=== PATIENT | female | born 1965 | race Caucasian/White ===

== ENCOUNTER → 2016-08-03 | Outpatient (CLI) | payer BC, OTHER ==
--- NOTE | 2016-08-04 13:16 | MAMMOGRAPHY REPORT ---
BILATERAL DIGITAL SCREENING MAMMOGRAM TOMOSYNTHESIS WITH CAD: 08/03/2016 TECHNIQUE: Breast tomosynthesis in addition to standard 2D mammography was performed. Current study was also evaluated with a Computer Aided Detection (CAD) system. COMPARISON: Comparison is made to exams dated: 08/29/2014 mammogram, 07/23/2013 mammogram - [facility], 10/03/2007, and 07/24/2008. BREAST COMPOSITION: The tissue of both breasts is heterogeneously dense, which may obscure small ma sses. FINDINGS: No suspicious masses, calcifications, or areas of architectural distortion are noted in e ither breast. There has been no significant interval change compared to prior exams. Small benign-a ppearing circumscribed masses within the left lateral and medial breast are stable compared to multi ple prior exams. Benign-appearing left breast calcifications are stable. IMPRESSION: ACR BI-RADS CATEGORY 2: BENIGN There is no mammographic evidence of malignancy. A 1 year screening mammogram is recommended. The p atient will receive written notification of the results. Approximately 10% of breast cancers are not detected with mammography. A negative mammographic repor t should not delay biopsy if a clinically suggestive mass is present. Shira Cr M.D. /:08/03/2016 16:12:58 Python Engineer: Reba WALKER(Kitty)(Gemma), [facility] letter sent: Normal 1/2 BI-RADS Code: ACR BI-RADS Category 2: Benign
== END | disposition home or self-care (01) ==
LOC: C.MAMM 13:09
PROVIDERS: ATTEND Obstetrics & Gynecology
DX: Z12.31 Encounter for screening mammogram for malignant neoplasm of breast (principal)

== ENCOUNTER → 2017-01-27 | Outpatient (CLI) | payer OTHER | END | disposition home or self-care (01) | LOC: C.LAB1850 10:01 | PROVIDERS: ATTEND Obstetrics & Gynecology | DX: N95.0 Postmenopausal bleeding (principal) ==

== ENCOUNTER → 2017-09-14 | Outpatient (CLI) | payer OTHER ==
--- NOTE | 2017-09-14 09:58 | DIAGNOSTIC IMAGING REPORT ---
CHEST 2 VIEWS ROUTINE CLINICAL HISTORY: D17.1 Lipoma of [id number] lipoma COMPARISON STUDY: No previous studies for comparison. FINDINGS: 1.6 x 1.7 cm nodule medial aspect right base. Density is indeterminate. Lungs otherwise appear clear. Diaphragms smooth. IMPRESSION: 1. 1.6 x 1.7 cm nodule medial right base. 2. CT of the chest is suggested as follow-up. The above report was generated using voice recognition software. It may contain grammatical, syntax or spelling errors. Electronically signed by: Miguel Hendrickson M.D. 09/14/2017 9:57 AM Dictated Date/Time: 09/14/2017 9:56 AM
== END | disposition home or self-care (01) ==
LOC: C.RAD1850 09:46
PROVIDERS: ATTEND Physician Assistant
DX: D17.1 Benign lipomatous neoplasm of skin and subcutaneous tissue of trunk (principal); R91.1 Solitary pulmonary nodule

== ENCOUNTER → 2017-09-19 | Outpatient (CLI) | payer OTHER ==
--- NOTE | 2017-09-19 14:05 | DIAGNOSTIC IMAGING REPORT ---
L EXTREMITY NONVASCULAR LIMITED CLINICAL HISTORY: [facility]17.1 [facility] need to arrive at 1:30p pain. Lipoma. TECHNIQUE: Ultrasound COMPARISON STUDY: None FINDINGS: Ultrasonic evaluation of the patient's left abdominal region was performed at the site of clinically palpable nodularity. At this site there is a 2 x 2.7 cm x 0.7 cm lipoma. No evidence for collection or abscess is appreciated. This nodule is well-circumscribed. IMPRESSION: Findings consistent with a lipoma at the site of clinically palpable nodularity. The above report was generated using voice recognition software. It may contain grammatical, syntax or spelling errors. Electronically signed by: Miguel Hendrickson M.D. 09/19/2017 2:04 PM Dictated Date/Time: 09/19/2017 2:03 PM
== END | disposition home or self-care (01) ==
LOC: C.ULTR 13:40
PROVIDERS: ATTEND Physician Assistant
DX: D17.1 Benign lipomatous neoplasm of skin and subcutaneous tissue of trunk (principal)

== ENCOUNTER → 2017-09-22 | Outpatient (CLI) | payer OTHER ==
--- NOTE | 2017-09-22 08:25 | DIAGNOSTIC IMAGING REPORT ---
(CHEST) THORAX WITHOUT CT DOSE: 265.30 mGy.cm HISTORY: R93.8 Abnormal finding on chest xray [id number] TECHNIQUE: Multiaxial CT images of the chest were performed without contrast. A dose lowering technique was utilized adhering to the principles of ALARA. COMPARISON: Chest 09/14/2017. FINDINGS: Confirmation of the 1.8 x 1.3 cm lobular nodule within the base the right lower lobe. This abuts the right major fissure. There is mild emphysema. A 4 mm subpleural nodule within the right lung apex on image 47. The central airways are patent. 3 mm subpleural nodule within the left upper lobe on image 97. A 5 mm subpleural nodule within the right middle lobe on image 151. A 3 mm subpleural nodule within the right lower lobe in image 179 and image 172. No suspicious lytic or blastic osseous lesions. The visualized liver, spleen, and adrenal glands are unremarkable. No pleural effusions. No pneumothorax. Normal caliber thoracic aorta. Smaller soft tissue within the anterior mediastinum favors residual thymus. No mediastinal or hilar lymphadenopathy. IMPRESSION: 1. Confirmation of a 1.8 x 1.3 cm lobular nodule within the right lower lobe. This is considered neoplastic until proven otherwise. Follow-up PET/CT and/or thoracic surgical consultation is recommended for further evaluation. 2. A few additional scattered subcentimeter subpleural nodules within the lungs at described above. The largest measures 5 mm within the right middle lobe. Continued follow-up is recommended pending complete workup of the right lower lobe nodule. 3. These findings were called/faxed to the referring physician's office. Electronically signed by: Jacob Hauser M.D. 09/22/2017 8:24 AM Dictated Date/Time: 09/22/2017 8:15 AM
== END | disposition home or self-care (01) ==
LOC: C.CTS 07:57
PROVIDERS: ATTEND Physician Assistant
DX: R93.8 Abnormal findings on diagnostic imaging of other specified body structures (principal)

== ENCOUNTER → 2017-10-02 | Outpatient (CLI) | payer OTHER ==
--- NOTE | 2017-10-02 10:43 | DIAGNOSTIC IMAGING REPORT ---
PET/CT SKULL-THIGH CLINICAL HISTORY: PULMONARY NODULE COMPARISON STUDY: Chest CT scan dated 09/22/2017 FINDINGS: The patient was injected with 14.6 mCi of F 18 labeled FDG. Following the standard induction phase, PET/CT scanning is performed from the skull base to the upper thigh region. Activity within neck is felt to be physiologic. Within the thorax, there is no pathologic mediastinal, hilar, or axillary activity. There is no pathologic pulmonary parenchymal activity. The 18 mm right lower lobe pulmonary nodule is not FDG avid. There is no pathologic hepatic activity. There is no pathologic adrenal gland activity. There is physiologic urinary tract and bowel activity. The uterus is enlarged likely secondary to fibroids. There is no pathologic al activity within the abdomen or pelvis. There is no pathologic skeletal activity. IMPRESSION: 1. The patient's 18 mm right lower lobe pulmonary nodule is not FDG avid 2. No evidence of pathologic al activity Electronically signed by: Samy Franks M.D. 10/02/2017 10:41 AM Dictated Date/Time: 10/02/2017 10:36 AM
== END | disposition home or self-care (01) ==
LOC: C.PET 07:52
PROVIDERS: ATTEND Surgery
DX: R91.1 Solitary pulmonary nodule (principal)

== ENCOUNTER 2017-10-04 07:53 | Inpatient (IN) | payer OTHER ==
[2017-09-28 14:18] VITALS: Ht 162.6 cm; Wt 68.2 kg
[2017-09-29 12:28] LABS: BASO % 0.3 %; BASO ABS # 0.02 K/uL (0-0.2); EOS % 2.2 %; EOS ABS # 0.13 K/uL (0-0.5); HEMATOCRIT 38.8 % (37-47); HEMOGLOBIN 12.9 g/dL (12.0-16.0); IG# 0.02 K/uL (0.00-0.02); LYMPH % 35.4 %; LYMPH ABS # 2.05 K/uL (1.2-3.4); MEAN CORPUSCULAR HEMOGLOBIN 29.9 pg (25-34); MEAN CORPUSCULAR HGB CONC 33.2 g/dl (32-36); MEAN PLATELET VOLUME 10.8 fL (7.4-10.4); MONO % 5.7 %; MONO ABS # 0.33 K/uL (0.11-0.59); NEUT % 56.1 %; NEUT ABS # 3.24 K/uL (1.4-6.5); PLATELET COUNT 166 K/uL (130-400); RED CELL DISTRIBUTION WIDTH CV 12.3 % (11.5-14.5); RED CELL DISTRIBUTION WIDTH SD 40.3 fL (36.4-46.3); WHITE BLOOD COUNT 5.79 K/uL (4.8-10.8)
[2017-09-29 12:54] LABS: CALCIUM 8.8 mg/dl (8.5-10.1); CREATININE 0.79 mg/dl (0.60-1.20); POTASSIUM 4.1 mmol/L (3.5-5.1)
[2017-10-04] VITALS (10 sets, daily range): BP systolic 95–135; BP diastolic 60–77; PULSE 55–88; TEMP 36.3–37.2; O2SAT 98–100
[~2017-10-04] VITALS: Ht 162.6 cm; Wt 68.2 kg
[~2017-10-04 07:53] MED LIST: LACTATED RINGER'S 1000ML 1,000 ML IV SCH
[2017-10-04] MEDS ORDERED: FENTANYL CITRATE INJ 50 MCG/1 ML 2 ML VIAL ONE ×2 (10:26)
[2017-10-04] MEDS ORDERED: MIDAZOLAM HCL 1 MG/ML 2ML VIAL ONE (10:26)
--- NOTE | 2017-10-04 10:38 | History & Physical Bridge Note ---
H&P Re-Evaluation Bridge Note: I have examined the patient, reviewed the History & Physical and in the interval since the performance of the History & Physical I have noted the following changes of clinical significance: No changes noted
[2017-10-04] MEDS ORDERED: BUPIVACAINE LIPOSOME 1/3% 266 MG/20 ML VIAL ONE (10:58)
[2017-10-04] MEDS ORDERED: SODIUM CHLORIDE 0.9% PF 50 ML VIAL ONE ×2 (10:58→10:59)
[2017-10-04] MEDS ORDERED: BUPIVACAINE 0.5 % 5 MG/1 ML MPF 30ML VIAL ONE (10:59)
[2017-10-04] MEDS ORDERED: CEFAZOLIN SOD 1 GM VIAL ONE ×2 (12:03→12:23)
[2017-10-04] MEDS ORDERED: ONDANSETRON INJ 2 MG/ML 2 ML VIAL ONE (12:23)
[2017-10-04] MEDS ORDERED: DEXAMETHASONE SOD INJ 4 MG/ML VIAL ONE (12:23)
[2017-10-04] MEDS ORDERED: LIDOCAINE HCL 2% 2 ML VIAL (20MG/ML) ONE (12:23)
[2017-10-04] MEDS ORDERED: PROPOFOL IV EMULSION 10 MG/ML 20 ML VIAL ONE (12:23)
[2017-10-04] MEDS ORDERED: ROCURONIUM BROMIDE 10 MG/ML 5 ML VIAL ONE ×4 (12:25→12:26)
[2017-10-04] MEDS ORDERED: PHENYLEPHRINE 100MCG/ML 5ML SYR ONE (12:26)
[2017-10-04] MEDS ORDERED: ATROPINE SULFATE 0.1 MG/ML 5ML SYR IV PRN (12:30)
[2017-10-04] MEDS ORDERED: ONDANSETRON INJ 2 MG/ML 2 ML VIAL IV PRN ×2 (12:30→13:30)
[2017-10-04] MEDS ORDERED: HYDROmorphone INJ 2 MG/ML SYR/VIAL IV PRN (12:30)
[2017-10-04] MEDS ORDERED: KETOROLAC TROMETHAMINE 30 MG/ML VIAL IV. PRN (12:30)
[2017-10-04] MEDS ORDERED: NEOSTIGMINE METHYLSULFATE 5 MG/5 ML SYR ONE (13:13)
[2017-10-04] MEDS ORDERED: GLYCOPYRROLATE INJ 0.2 MG/ML VIAL ONE (13:13)
[2017-10-04] MEDS ORDERED: SURGICEL ABSORB HEMOSTAT 2IN X 14IN TOP ONE (13:23)
[2017-10-04] MEDS ORDERED: MoRPHine SULFATE 4 MG/ML 1 ML CARP\\VIAL IV PRN (13:30)
[2017-10-04] MEDS: KETOROLAC TROMETHAMINE 15 MG/ML VIAL IV. SCH ×2 (13:30→21:28)
[2017-10-04] MEDS ORDERED: METOCLOPRAMIDE HCL INJ 5 MG/ML 2 ML VIAL IV. STA (13:30)
[2017-10-04] MEDS ORDERED: METOCLOPRAMIDE HCL INJ 5 MG/ML 2 ML VIAL ONE (14:02)
--- NOTE | 2017-10-04 14:18 | DIAGNOSTIC IMAGING REPORT ---
CHEST ONE VIEW PORTABLE HISTORY: 52 years-old Female RLL wedge status post right lower lobe resection COMPARISON: Chest radiograph 09/14/2017, PET CT 10/02/2017 TECHNIQUE: Portable AP view of the chest FINDINGS: Cardiac silhouette is within normal limits. Postoperative changes from right lower lobe resection. Right-sided chest tube is noted with distal tip projected superiorly adjacent to lateral aspect of the right lung apex. Tiny right apical pneumothorax is seen, pleural separation 5 mm. Surgical suture material projects over the right lung base from prior wedge resection. Subsegmental bibasilar opacities are noted without large pleural effusion. No overt pulmonary edema. No retained foreign body. The bones appear grossly intact. IMPRESSION: 1. Postoperative changes of the right lung base with right-sided chest tube projected adjacent to the lateral right lung apex. 2. Tiny right apical pneumothorax. 3. Subsegmental bibasilar opacities suggest atelectasis. The above report was generated using voice recognition software. It may contain grammatical, syntax or spelling errors. Electronically signed by: Phoenix Eason M.D. 10/04/2017 2:17 PM Dictated Date/Time: 10/04/2017 2:13 PM
[2017-10-04] MEDS: D5W AND 1/2NSS 1,000 ML IV SCH (15:16)
[2017-10-04] MEDS: METOCLOPRAMIDE HCL INJ 5 MG/ML 2 ML VIAL IV. SCH ×2 (15:30→21:28)
[2017-10-04] MEDS: ACETAMINOPHEN IV 1,000 MG in EMPTY BAG 0 ML IV SCH (15:51)
--- NOTE | 2017-10-04 16:00 | Anesthesiology Progress Note ---
Anesthesia Post Op Note Date & Time October 04, 2017 at 16:00 Vital Signs Pain Intensity: 0.0 Vital Signs Past 12 Hours Date Time Temp Pulse Resp B/P (MAP) Pulse Ox O2 Delivery O2 Flow Rate FiO2 10/04/17 15:55 36.4 68 18 115/65 (82) 99 Nasal Cannula 2.0 10/04/17 15:30 36.4 55 16 130/77 (94) 100 Nasal Cannula 2.0 10/04/17 14:55 99 Nasal Cannula 2.0 10/04/17 14:55 36.3 55 12 135/70 (91) 99 Nasal Cannula 2.0 10/04/17 14:40 36.4 49 12 133/69 100 Nasal Cannula 2 10/04/17 14:30 49 10 125/71 100 Nasal Cannula 2 10/04/17 14:20 48 19 132/70 100 Nasal Cannula 2 10/04/17 14:10 49 14 138/79 100 Nasal Cannula 2 10/04/17 14:00 48 15 139/77 100 Oxymask 10 10/04/17 13:50 47 13 138/71 100 Oxymask 10 10/04/17 13:41 36.3 55 13 145/79 100 Oxymask 10 10/04/17 08:30 36.8 82 18 117/70 99 Room Air Notes Mental Status: alert / awake / arousable, participated in evaluation Pt Amnestic to Procedure: Yes Nausea / Vomiting: adequately controlled Pain: adequately controlled Airway Patency, RR, SpO2: stable & adequate BP & HR: stable & adequate Hydration State: stable & adequate Anesthetic Complications: no major complications apparent
--- NOTE | 2017-10-04 19:53 | OPERATIVE REPORT ---
DATE OF OPERATION: 10/04/2017 PREOPERATIVE DIAGNOSIS: Right lower lobe mass. POSTOPERATIVE DIAGNOSIS: Hamartoma right lower lobe. PROCEDURE: 1. Jordan-assisted thoracoscopic wedge resection. 2. Lymph node biopsy. SURGEON: Enrique Frye MD RIGGING ENGINEER: OCTAVIO Olivia (Mr. Marcelino was present for the entire case). ANESTHESIA: General anesthesia with endotracheal intubation using double lumen tube. COMPLICATIONS: Kiley Garcia is a 52-year-old smoker who was found to have a mass in her right lower lobe. It is quite concerning and it certainly did appear to be malignant. She underwent a workup and was felt she would tolerate a resection. On 10/04/2017, I brought the patient to the operating room and did a robot-assisted thoracoscopic wedge resection of this right lower lobe mass. We easily saw the mass and wedged it out. It was extremely hard. Grossly, it appeared to be a hamartoma and on frozen section it did indeed glove turner and former to be a hamartoma. I biopsied the 7, 8, 9 and 11, 12 lymph node stations while we were waiting. We really lost no blood. We did an Exparel block. She tolerated it well. PROCEDURE: The patient brought to operating room and placed in supine position. General anesthesia induced and endotracheal intubation was performed with a double lumen tube.. The patient was placed in the left lateral decubitus position, right chest prepped and draped in usual sterile fashion. Exparel (liposomal mepivacaine) was mixed with 30 mL of 0.5% bupivacaine 150 mL normal saline. It was injected into all of her incisions prior to making incision. I made a camera port in about the 8th interspace just about the mid axillary line and put my camera and could see that we were in the pleural cavity. Carbon dioxide was then insufflated. I then placed the posterior most 5 mm port and 8 mm port between these 2 port posteriorly. I placed an anterior port, which was an 8 mm port and the 12 mm medical records assistant port. The robot was then docked. There were no adhesions. I took down the inferior pulmonary ligament, biopsied level IX, level VIII and level VII lymph nodes as well as a level XI and really freed up the vein nicely. I could then see the mass and wedged this out with Endo-ROSSY stapler fired x3. This was delivered off in an Endobag. We had no bleeding and no air leak from this. While waiting for this, I biopsied level XI and XII in the fissure and identified the artery. I did not take any vessels and although I had isolated the fissures nicely, we could have easily have fired the Endo-ROSSY stapler. I did not when the frozen section came back as a hamartoma. We elected to stop. 266 mg of Exparel that had been mixed with bupivicaine and saline that was then injected in an intercostal block fashion from the 2nd to 11th rib. We really got into no bleeding. The robot was undocked and removed. A handheld camera was then used to direct a chest tube placed in the anterior thoracoscopy port towards the apex. Large incisions were closed with a single 0 Vicryl to close the muscle layers. 4-0 Monocryl was used in running subcuticular fashion to approximate the wound edges. The patient tolerated it well and was awakened from anesthesia without difficulty without an air leak. I attest to the content of the Intraoperative Record and any orders documented therein. Any exceptions are noted below. MTDD
[2017-10-04] MEDS: OXYCODONE HCL IR 5 MG TAB (IMMEDIATE RELEASE) PO PRN (20:07)
[2017-10-04] MEDS: DOCUSATE SODIUM 100 MG CAP PO SCH (21:28)
[2017-10-05] VITALS (8 sets, daily range): BP systolic 94–125; BP diastolic 51–72; PULSE 53–75; TEMP 36.8–37; O2SAT 95–98
[2017-10-05] MEDS: D5W AND 1/2NSS 1,000 ML IV SCH (00:06)
[2017-10-05] MEDS: ACETAMINOPHEN IV 1,000 MG in EMPTY BAG 0 ML IV SCH ×2 (00:06→08:23)
[2017-10-05] MEDS: METOCLOPRAMIDE HCL INJ 5 MG/ML 2 ML VIAL IV. SCH ×2 (05:48→13:29)
[2017-10-05] MEDS: KETOROLAC TROMETHAMINE 15 MG/ML VIAL IV. SCH ×3 (05:48→21:24)
[2017-10-05] MEDS ORDERED: CLC100 PO (06:08)
--- NOTE | 2017-10-05 06:10 | Discharge Instructions ---
Discharge Instructions Date of Service October 05, 2017. Admission Reason for Admission: Lung Nodule, R91.1 Discharge Discharge Diagnosis / Problem: Hamartoma Discharge Goals Goal(s): Learn about illness Activity Recommendations Activity Limitations: as noted below Lifting Limitations: none 1. Do not fly or drive until cleared to do so by Dr. Frye. . Instructions / Follow-Up Instructions / Follow-Up 1. You may remove dressings in 3 days and shower thereafter. No tub baths. 2. Office appointment with Dr. Frye in 1 week. Office will call with date and time of appointment. Go to hospital 1 hour before appointment to have a chest x-ray taken. Current Hospital Diet Patient's current hospital diet: Regular Diet Discharge Diet Recommended Diet: Regular Diet Procedures Procedures Performed: Robot Assisted Right Video Thoracoscopy with Lower Lobe Wedge Resection Pending Studies Studies pending at discharge: no Medical Emergencies . Who to Call and When: Medical Emergencies: If at any time you feel your situation is an emergency, please call 911 immediately. . Non-Emergent Contact Non-Emergency issues call your: Surgeon Call Non-Emergent contact if: you have a fever, your pain is not controlled, wound has increased drainage . "Provider Documentation" section prepared by Jordan Marcelino. .
--- NOTE | 2017-10-05 07:22 | DIAGNOSTIC IMAGING REPORT ---
CHEST ONE VIEW PORTABLE CLINICAL HISTORY: RLL wedge COMPARISON STUDY: 10/04/2017 FINDINGS: The cardiac and mediastinal contours remain stable. The right-sided chest tube has been pulled back slightly. No pneumothorax is visualized. There is no failure. There are no pleural effusions. There are minor right basilar atelectatic changes.[ IMPRESSION: Postoperative changes on the right. No evidence of pneumothorax. Minor right basilar atelectasis Electronically signed by: Samy Franks M.D. 10/05/2017 7:21 AM Dictated Date/Time: 10/05/2017 7:20 AM
[2017-10-05] MEDS: DOCUSATE SODIUM 100 MG CAP PO SCH ×2 (08:27→21:23)
[2017-10-05] MEDS: ENOXAPARIN 40 MG/0.4 ML SYR SQ SCH (08:29)
[2017-10-05] MEDS ORDERED: ULT/50 PO (09:04)
--- NOTE | 2017-10-05 09:23 | DIAGNOSTIC IMAGING REPORT ---
CHEST ONE VIEW PORTABLE CLINICAL HISTORY: tube removal COMPARISON STUDY: 10/05/2017 6:55 AM FINDINGS: Interval removal of right-sided chest tube. Very small residual pneumothorax versus plate like atelectasis right base. No evidence for right apical pneumothorax. Left lung remains clear. IMPRESSION: 1. Interval removal of the right-sided chest tube. 2. Platelike atelectasis right base versus a very small residual pneumothorax. The above report was generated using voice recognition software. It may contain grammatical, syntax or spelling errors. Electronically signed by: Miguel Hendrickson M.D. 10/05/2017 9:21 AM Dictated Date/Time: 10/05/2017 9:20 AM
[2017-10-05] MEDS: ACETAMINOPHEN 325 MG TAB PO SCH ×2 (13:29→19:29)
--- NOTE | 2017-10-05 18:21 | SURGERY PROGRESS NOTE ---
DATE: 10/05/2017 Ms. Garcia was seen today. We removed her chest tube. Her pain is better. However, she has very little support at home and her is ill. I am not comfortable sending her home today. We will plan on sending her home tomorrow morning if she looks good. It appears that she did have a hamartoma and has done well with her robot-assisted thoracoscopic wedge resection.
[2017-10-05] MEDS: OXYCODONE HCL IR 5 MG TAB (IMMEDIATE RELEASE) PO PRN (19:29)
[2017-10-06] MEDS: ACETAMINOPHEN 325 MG TAB PO SCH ×4 (02:08→21:09)
[2017-10-06] MEDS: OXYCODONE HCL IR 5 MG TAB (IMMEDIATE RELEASE) PO PRN (03:43)
[2017-10-06 05:50] VITALS: BP 67/28; PULSE 62
[2017-10-06 05:58] VITALS: BP 109/68; PULSE 76
[2017-10-06] MEDS: KETOROLAC TROMETHAMINE 15 MG/ML VIAL IV. SCH (06:26)
[2017-10-06 06:32] LABS: BASO % 0.1 %; BASO ABS # 0.01 K/uL (0-0.2); EOS % 1.5 %; EOS ABS # 0.14 K/uL (0-0.5); HEMATOCRIT 26.4 % (37-47); HEMOGLOBIN 8.8 g/dL (12.0-16.0); IG# 0.01 K/uL (0.00-0.02); LYMPH % 14.1 %; LYMPH ABS # 1.28 K/uL (1.2-3.4); MEAN CELL VOLUME 89.5 fL (80-100); MEAN CORPUSCULAR HEMOGLOBIN 29.8 pg (25-34); MEAN CORPUSCULAR HGB CONC 33.3 g/dl (32-36); MEAN PLATELET VOLUME 9.8 fL (7.4-10.4); MONO ABS # 0.46 K/uL (0.11-0.59); NEUT % 79.2 %; NEUT ABS # 7.21 K/uL (1.4-6.5); PLATELET COUNT 150 K/uL (130-400); RED CELL DISTRIBUTION WIDTH CV 12.7 % (11.5-14.5); RED CELL DISTRIBUTION WIDTH SD 41.9 fL (36.4-46.3); WHITE BLOOD COUNT 9.11 K/uL (4.8-10.8)
--- NOTE | 2017-10-06 07:04 | DIAGNOSTIC IMAGING REPORT ---
CHEST ONE VIEW PORTABLE CLINICAL HISTORY: Syncope COMPARISON STUDY: 10/05/2017 FINDINGS: The cardiac and mediastinal contours remain stable. Postsurgical changes are present the right lung base. There is a small right pleural effusion with right basilar atelectasis/consolidation.[ IMPRESSION: Small right pleural effusion with associated minimal right basal airspace opacities Electronically signed by: Samy Franks M.D. 10/06/2017 7:03 AM Dictated Date/Time: 10/06/2017 7:02 AM
[2017-10-06 07:10] VITALS: BP 98/63; PULSE 81; TEMP 37.1; O2SAT 95
[2017-10-06 07:12] LABS: ALBUMIN 2.9 gm/dl (3.4-5.0); CALCIUM 7.8 mg/dl (8.5-10.1); CREATININE 0.61 mg/dl (0.60-1.20); POTASSIUM 4.1 mmol/L (3.5-5.1)
[2017-10-06 07:15] LABS: TOTAL PROTEIN 5.7 gm/dl (6.4-8.2)
--- NOTE | 2017-10-06 07:59 | SURGERY PROGRESS NOTE ---
DATE: 10/06/2017 Ms. Garcia is a 52-year-old female who was found to have a mass in her right lower lobe. We were concerned about this. I set her up to resect this as she does have a history of cigarette smoking, and it appeared ominous on the CT scan. Two days ago, I performed a robot-assisted thoracoscopic wedge resection with a lymph node dissection. This was a hamartoma. All of her nodes are negative as would be expected. I kept her overnight. She was still a little bit shaky on her feet yesterday. Early this morning, she dropped her blood pressure to the 60s, her heart rate to the 60s, and had a presyncopal episode. Nurse has put her back in bed. She was trying to have a bowel movement at this time. This has not happened to her before. We checked labs on her, and her hemoglobin dropped from 12.9 to 8.8. We really did not lose any blood during this case. We did an x-ray, and she has a very small pleural effusion, which is not accounting for this blood loss. Her vital signs have been stable to this point. She made 4000 mL of urine yesterday without diuretics. Her lungs sound clear on auscultation. At this point, we are going to keep her here, ambulate her in the hallway, and I am going to check labs on her this afternoon, and I am going to repeat her CBC.
[2017-10-06] MEDS: DOCUSATE SODIUM 100 MG CAP PO SCH ×2 (10:21→21:08)
[2017-10-06] MEDS: ENOXAPARIN 40 MG/0.4 ML SYR SQ SCH (10:23)
[2017-10-06 12:53] LABS: BASO % 0.1 %; BASO ABS # 0.01 K/uL (0-0.2); EOS % 0.8 %; EOS ABS # 0.07 K/uL (0-0.5); HEMATOCRIT 25.4 % (37-47); HEMOGLOBIN 8.7 g/dL (12.0-16.0); IG# 0.02 K/uL (0.00-0.02); LYMPH % 13.4 %; LYMPH ABS # 1.22 K/uL (1.2-3.4); MEAN CELL VOLUME 88.8 fL (80-100); MEAN CORPUSCULAR HEMOGLOBIN 30.4 pg (25-34); MEAN PLATELET VOLUME 9.9 fL (7.4-10.4); MONO ABS # 0.27 K/uL (0.11-0.59); NEUT % 82.5 %; NEUT ABS # 7.53 K/uL (1.4-6.5); PLATELET COUNT 162 K/uL (130-400); RED CELL DISTRIBUTION WIDTH CV 12.7 % (11.5-14.5); WHITE BLOOD COUNT 9.12 K/uL (4.8-10.8)
[2017-10-06 12:59] LABS: MEAN CORPUSCULAR HGB CONC 34.3 g/dl (32-36)
[2017-10-06] MEDS ORDERED: SOD PHOSPHATE/SOD BIPHOSPHATE ENEMA 132 ML BTL PR PRN (13:45)
[2017-10-06] MEDS ORDERED: BISACODYL 10 MG SUPP PR PRN (13:45)
--- NOTE | 2017-10-06 13:53 | SURGERY PROGRESS NOTE ---
DATE: 10/06/2017 Ms. Garcia's final pathology came back. Her nodes were all negative. She did indeed have a hamartoma. Chest tube has been out. Hemoglobin has remained stable at 8.7, however, she has been lightheaded. I am a bit uncomfortable, we will keep her 1 more night and check a hemoglobin on her in the morning. If she remains stable, we will see about discharging at that time.
[2017-10-06 15:00] VITALS: BP 112/71; PULSE 85; TEMP 36.3; O2SAT 100
[2017-10-06 22:55] VITALS: BP 104/71; PULSE 91; TEMP 37.1; O2SAT 94
[2017-10-07] MEDS: ACETAMINOPHEN 325 MG TAB PO SCH ×2 (02:03→09:39)
[2017-10-07 07:00] VITALS: BP 95/64; PULSE 80; TEMP 37.1; O2SAT 99
--- NOTE | 2017-10-07 07:53 | DIAGNOSTIC IMAGING REPORT ---
CHEST ONE VIEW PORTABLE HISTORY: 52 years-old Female lung resection acute cough COMPARISON: Chest radiograph 10/06/2017 TECHNIQUE: Portable AP view of the chest FINDINGS: Cardiomediastinal and hilar silhouettes are within normal limits. No pneumothorax. Left lung is clear. Surgical suture material projects over the right lung base. Trace right pleural effusion with subsegmental right basilar opacities persist. The bones appear grossly intact. IMPRESSION: Stable exam with postsurgical changes of the right lung base, trace right pleural effusion with subsegmental right basilar opacities. The above report was generated using voice recognition software. It may contain grammatical, syntax or spelling errors. Electronically signed by: Phoenix Eason M.D. 10/07/2017 7:52 AM Dictated Date/Time: 10/07/2017 7:51 AM
[2017-10-07] MEDS ORDERED: POLYETHYLENE (MIRALAX) 17 GM PACK PO SCH (09:00)
[2017-10-07] MEDS: DOCUSATE SODIUM 100 MG CAP PO SCH (09:39)
[2017-10-07] MEDS: ENOXAPARIN 40 MG/0.4 ML SYR SQ SCH (09:40)
[2017-10-07 10:21] VITALS: BP 95/64; PULSE 80; TEMP 37.1; O2SAT 99
--- NOTE | 2017-10-07 14:35 | DISCHARGE SUMMARY ---
DISCHARGE DIAGNOSES: 1. Hamartoma, right lower lobe. 2. Anemia. HOSPITAL COURSE: Kiley Garcia is a 52-year-old female with history of cigarette smoking, who was found to have a mass in her right lower lobe. This was ominous in appearance. A PET scan did not show any evidence of spread; however, I felt that a wedge resection of this with a possible lobectomy be offered to her. We discussed the pros and cons of a navigational bronchoscopy and a needle biopsy. I explained to her that even if the needle biopsy does not show cancer, I would still be uncomfortable watching this mass. On 10/04/2017, the patient underwent an uncomplicated robot-assisted thoracoscopic resection of this mass. We also did a lymph node biopsy, but awaiting for frozen section. Frozen section showed this to be a hamartoma. We did a block and stopped there. She did quite well; however, the following day, we removed her chest tube, however, she was still a bit shaky on her feet. Her was also ill at home. I was not comfortable sending her home and she was extremely apprehensively better. The following morning, her hemoglobin had fallen from 12.9 to 8.8. We repeated this and it was 8.7. Hemodynamically, she had been stable except for a vagal episode she had. I watched her one more day and she had a quiet night. Her x-ray looked good on the day of discharge. We are going to send her home today and I will see her back and recheck her hemoglobin and an x-ray later this week.
--- NOTE | 2017-10-10 11:05 | EDITING REQUIRED CODING QUERY ---
ANEMIA To promote full compliance with coding requirements relating to patient care, physician participation is requested in all cases of manager environmental services uncertainty. Please assist us with the question(s) below: Coding Question(s): The record reflects the following clinical findings: If these findings are indicative of anemia, please specify the known or suspected type by placing an "X" within the parenthesis (x). If other, please document type. Examples are: ( ) Acute blood loss anemia ( ) Acute Postoperative blood loss anemia ( ) Acute postoperative anemia due to dilutional fluids ( ) Chronic blood loss anemia ( ) Anemia of chronic disease ( ) Aplastic anemia ( ) Anemia due to renal disease ( ) Anemia in neoplastic disease ( ) Iron deficient anemia ( ) Anemia, unspecified or other ( ) Other: (please specify) (X ) Unable to determine Thank you Agatha Harvey
[2017-10-12] MEDS ORDERED: CLBCRM30 EXT (10:57)
[2017-10-12] MEDS ORDERED: ACET-1256 PO (10:57)
== END 2017-10-07 13:43 | disposition home or self-care (01) | DRG 830 ==
LOC: C.ACU 07:53 → C.MSW 10:30 → ENRESERV 14:38
PROVIDERS: ADMIT Surgery; ATTEND Surgery
PROC: 8E0W4CZ Robotic Assisted Procedure of Trunk Region, Percutaneous Endoscopic Approach (ICD-10-PCS; principal; 2017-10-04 10:00)
PROC: 0BBF4ZX Excision of Right Lower Lung Lobe, Percutaneous Endoscopic Approach, Diagnostic (ICD-10-PCS; principal; 2017-10-04 10:00)
PROC: 0W9930Z Drainage of Right Pleural Cavity with Drainage Device, Percutaneous Approach (ICD-10-PCS; principal; 2017-10-04 10:00)
PROC: 07B74ZX Excision of Thorax Lymphatic, Percutaneous Endoscopic Approach, Diagnostic (ICD-10-PCS; principal; 2017-10-04 10:00)
DX: Q85.9 Phakomatosis, unspecified (principal); D64.9 Anemia, unspecified; F17.210 Nicotine dependence, cigarettes, uncomplicated; L71.9 Rosacea, unspecified; Z79.899 Other long term (current) drug therapy; Z83.49 Family history of other endocrine, nutritional and metabolic diseases

== ENCOUNTER → 2017-10-10 | Outpatient (CLI) | payer OTHER ==
[~2017-10-10] MED LIST changes: +ACET-1256 PO; +CLBCRM30 EXT; +CLC100 PO; +DOCU-94 PO; +FERR1TAB23 PO; -LACTATED RINGER'S 1000ML 1,000 ML IV SCH; +ULT/50 PO
== END | disposition home or self-care (01) ==
LOC: C.PAPS 14:14
PROVIDERS: ATTEND Obstetrics & Gynecology
DX: Z12.4 Encounter for screening for malignant neoplasm of cervix (principal)

== ENCOUNTER → 2017-10-10 | Outpatient (CLI) | payer OTHER ==
[~2017-10-10] MED LIST changes: -ACET-1256 PO; -CLBCRM30 EXT; -DOCU-94 PO; -FERR1TAB23 PO
--- NOTE | 2017-10-10 12:35 | DIAGNOSTIC IMAGING REPORT ---
CHEST 2 VIEWS ROUTINE CLINICAL HISTORY: R91.1 Lung [id number] COMPARISON STUDY: 10/07/2017 FINDINGS: The heart is normal in size. There is no failure. There is no focal pulmonary consolidation. There is a small right pleural effusion.[ IMPRESSION: Small right pleural effusion. Electronically signed by: Samy Franks M.D. 10/10/2017 12:33 PM Dictated Date/Time: 10/10/2017 12:32 PM
[2017-10-10 13:28] LABS: BASO % 0.3 %; BASO ABS # 0.02 K/uL (0-0.2); EOS % 5.1 %; HEMATOCRIT 23.1 % (37-47); HEMOGLOBIN 7.5 g/dL (12.0-16.0); IG# 0.01 K/uL (0.00-0.02); LYMPH % 24.1 %; LYMPH ABS # 1.91 K/uL (1.2-3.4); MEAN CELL VOLUME 93.1 fL (80-100); MEAN CORPUSCULAR HEMOGLOBIN 30.2 pg (25-34); MEAN CORPUSCULAR HGB CONC 32.5 g/dl (32-36); MEAN PLATELET VOLUME 9.7 fL (7.4-10.4); MONO % 5.7 %; MONO ABS # 0.45 K/uL (0.11-0.59); NEUT % 64.7 %; NEUT ABS # 5.12 K/uL (1.4-6.5); PLATELET COUNT 236 K/uL (130-400); RED CELL DISTRIBUTION WIDTH CV 13.8 % (11.5-14.5); RED CELL DISTRIBUTION WIDTH SD 44.4 fL (36.4-46.3); WHITE BLOOD COUNT 7.91 K/uL (4.8-10.8)
== END | disposition home or self-care (01) ==
LOC: C.RAD1850 11:51
PROVIDERS: ATTEND Surgery
DX: R91.1 Solitary pulmonary nodule (principal); J90 Pleural effusion, not elsewhere classified

== ENCOUNTER 2017-10-12 13:57 | Emergency (ER) | payer OTHER ==
[~2017-10-12] VITALS: Ht 162.6 cm; Wt 70.4 kg
[~2017-10-12 13:57] MED LIST changes: +ACET-1256 PO; +CLBCRM30 EXT
[2017-10-12 14:00] VITALS: TEMP 37.1; Ht 162.6 cm; Wt 70.4 kg
[2017-10-12] MEDS ORDERED: SODIUM CHLORIDE 0.9% 1000ML 1,000 ML IV STA (14:21)
[2017-10-12 14:39] VITALS: O2SAT 98
--- NOTE | 2017-10-12 14:47 | DIAGNOSTIC IMAGING REPORT ---
CHEST ONE VIEW PORTABLE CLINICAL HISTORY: 52 years-old Female presenting with EVALUATE GI BLEED. TECHNIQUE: Portable upright AP view of the chest was obtained. COMPARISON: 10/10/2017. FINDINGS: Cardiomediastinal silhouette normal. Infiltration of the right hemidiaphragm, unchanged. No focal opacity. No large effusion or pneumothorax. Osseous structures normal. Upper abdomen normal. IMPRESSION: 1. No acute cardiopulmonary disease. Electronically signed by: Vishnu Valentino M.D. 10/12/2017 2:46 PM Dictated Date/Time: 10/12/2017 2:44 PM
[2017-10-12 14:56] LABS: BASO % 0.1 %; BASO ABS # 0.01 K/uL (0-0.2); EOS % 3.2 %; EOS ABS # 0.33 K/uL (0-0.5); HEMATOCRIT 24.2 % (37-47); HEMOGLOBIN 7.8 g/dL (12.0-16.0); IG# 0.03 K/uL (0.00-0.02); LYMPH ABS # 1.33 K/uL (1.2-3.4); MEAN CELL VOLUME 93.4 fL (80-100); MEAN CORPUSCULAR HEMOGLOBIN 30.1 pg (25-34); MEAN CORPUSCULAR HGB CONC 32.2 g/dl (32-36); MEAN PLATELET VOLUME 9.5 fL (7.4-10.4); MONO % 5.6 %; MONO ABS # 0.57 K/uL (0.11-0.59); NEUT % 77.8 %; PLATELET COUNT 281 K/uL (130-400); RED CELL DISTRIBUTION WIDTH CV 15.1 % (11.5-14.5); RED CELL DISTRIBUTION WIDTH SD 46.9 fL (36.4-46.3); WHITE BLOOD COUNT 10.27 K/uL (4.8-10.8)
[2017-10-12] MEDS ORDERED: FERR1TAB23 PO (15:03)
[2017-10-12] MEDS ORDERED: DOCU-94 PO (15:03)
[2017-10-12 15:07] LABS: PTT PATIENT 24.9 SECONDS (21.0-31.0)
[2017-10-12 15:39] LABS: POTASSIUM 4.1 mmol/L (3.5-5.1)
[2017-10-12 15:47] LABS: ALBUMIN 3.7 gm/dl (3.4-5.0); CALCIUM 8.7 mg/dl (8.5-10.1); CREATININE 0.75 mg/dl (0.60-1.20); TOTAL PROTEIN 7.3 gm/dl (6.4-8.2)
--- NOTE | 2017-10-12 16:49 | DIAGNOSTIC IMAGING REPORT ---
HEAD CT NONCONTRAST CT DOSE: 776.86 mGycm HISTORY: Headache. TECHNIQUE: Multiaxial CT images of the head were performed without the use of intravenous contrast. Automated exposure control was utilized for this study. A dose lowering technique was utilized adhering to the principles of ALARA. Comparison: None. Findings: The paranasal sinuses and mastoid air cells are clear. The calvarium and skull base are intact. The ventricles and sulci are within normal limits. There is no mass, hematoma, midline shift, or acute infarct. Impression: No acute intracranial abnormality. Electronically signed by: Jacob Hauser M.D. 10/12/2017 4:48 PM Dictated Date/Time: 10/12/2017 4:39 PM
[2017-10-12 17:30] VITALS: BP 110/65; PULSE 62; O2SAT 98
--- NOTE | 2017-10-12 18:39 | EMERGENCY ROOM VISIT NOTE ---
History Report prepared by Carolyn: Allyssa Rivera Under the Supervision of: Dr. Slim Lazo D.O. First contact with patient: 14:11 Chief Complaint: ILLNESS Stated Complaint: LOW HEMOGLOBIN COUNT/ BLURRY VISION History of Present Illness The patient is a 52 year old female who presents to the Emergency Room with complaints of intermittent illness starting today. The patient states that she had a right lower lobe hamartoma removed [address] Frye. She states that while in the hospital she fainted and they found that the patient's hemoglobin was low. She reports that they released her after keeping her an extra day when her hemoglobin started to rise. She reports that she noticed when her hemoglobin was low that she gets these swatches in her vision similar to after getting her picture taken with the flash. She notes that it is both eyes, but worse in the right. The patient states that when she got the same swatches in her vision today she called her PCP. She reports that her PCP reviewed her results from [facility] and asked her to come to the ED immediately. The patient complains of right sided head pressure. The patient denies chest pain, shortness of breath, nausea, vomiting, urinary symptoms, fevers, melena, abdominal pain, weakness, numbness, drainage from the incision, and the use of blood thinners. The patient notes that she has had loose stools, but she has been on Dulcolax since the surgery. Source of History: patient Onset: today Position: other (global) Quality: other (illness) Timing: intermittent Associated Symptoms: No fevers, No chest pain, No SOB, No nausea, No vomiting, No abdominal pain, No melena, No urinary symptoms, No weakness, No numbness Note: The patient complains of vision changes and right sided head pressure. The patient denies drainage from her incision. Review of Systems See HPI for pertinent positives & negatives. A total of 10 systems reviewed and were otherwise negative. Past Medical & Surgical Medical Problems: (1) Hamartoma Family History No pertinent family history Social History Smoking Status: Former Smoker Marital Status: single Housing Status: lives alone Current/Historical Medications Scheduled Clobetasol Propionate (Clobetasol Propionate Cream 0.05%), 1 APPLN EXT DIRECTED Docusate Sodium (Colace), 100 MG PO BID Ferrous Sulfate (Iron), 325 MG PO DAILY Scheduled PRN Acetaminophen (Tylenol), 2 TAB PO Q6 PRN for Pain Allergies Coded Allergies: No Known Allergies (Verified , 10/12/17) Physical Exam Vital Signs Date Time Temp Pulse Resp B/P (MAP) Pulse Ox O2 Delivery O2 Flow Rate FiO2 10/12/17 17:30 62 16 110/65 98 Room Air 10/12/17 15:55 68 16 109/58 98 Room Air 10/12/17 15:17 85 10/12/17 14:39 98 Room Air 10/12/17 14:00 37.1 104 20 119/71 98 Room Air Physical Exam GENERAL: Sitting up in bed, alert, well appearing, well nourished, no distress, non-toxic EYE EXAM: normal conjunctiva, PERRLA OROPHARYNX: no exudate, no erythema, lips, buccal mucosa, and tongue normal and mucous membranes are moist NECK: supple, no nuchal rigidity, no adenopathy, non-tender LUNGS: Clear to auscultation. Normal chest wall mechanics HEART: no murmurs, S1 normal and S2 normal ABDOMEN: abdomen soft, non-tender, normo-active bowel sounds, no masses, no rebound or guarding. CHEST: Old port incisions are clear, dry and intact. BACK: Back is symmetrical on inspection and there is no deformity, no midline tenderness, no CVA tenderness. SKIN: no rashes and no bruising UPPER EXTREMITIES: upper extremities are grossly normal. LOWER EXTREMITIES: No pitting edema. NEURO EXAM: Normal sensorium, cranial nerves II-XII grossly intact, normal speech, no gross weakness of arms, no gross weakness of legs. Medical Decision & Procedures ER Provider Diagnostic Interpretation: Radiology results as stated below per my review and the radiologist's interpretation: CHEST ONE VIEW PORTABLE CLINICAL HISTORY: 52 years-old Female presenting with EVALUATE GI BLEED. TECHNIQUE: Portable upright AP view of the chest was obtained. COMPARISON: 10/10/2017. FINDINGS: Cardiomediastinal silhouette normal. Infiltration of the right hemidiaphragm, unchanged. No focal opacity. No large effusion or pneumothorax. Osseous structures normal. Upper abdomen normal. IMPRESSION: 1. No acute cardiopulmonary disease. Electronically signed by: Vishnu Valentino M.D. 10/12/2017 2:46 PM Dictated Date/Time: 10/12/2017 2:[address]AST CT DOSE: 776.86 mGycm HISTORY: Headache. TECHNIQUE: Multiaxial CT images of the head were performed without the use of intravenous contrast. Automated exposure control was utilized for this study. A dose lowering technique was utilized adhering to the principles of ALARA. Comparison: None. Findings: The paranasal sinuses and mastoid air cells are clear. The calvarium and skull base are intact. The ventricles and sulci are within normal limits. There is no mass, hematoma, midline shift, or acute infarct. Impression: No acute intracranial abnormality. Electronically signed by: Jacob Hauser M.D. 10/12/2017 4:48 PM Dictated Date/Time: 10/12/2017 4:39 PM Laboratory Results 10/12/17 14:44 Red Blood Count 2.59, Mean Corpuscular Volume 93.4, Mean Corpuscular Hemoglobin 30.1, Mean Corpuscular Hemoglobin Concent 32.2, Mean Platelet Volume 9.5, Neutrophils (%) (Auto) 77.8, Lymphocytes (%) (Auto) 13.0, Monocytes (%) (Auto) 5.6, Eosinophils (%) (Auto) 3.2, Basophils (%) (Auto) 0.1, Neutrophils # (Auto) 8.00, Lymphocytes # (Auto) 1.33, Monocytes # (Auto) 0.57, Eosinophils # (Auto) 0.33, Basophils # (Auto) 0.01 10/12/17 14:44 Test 10/12/17 14:44 10/12/17 16:02 White Blood Count 10.27 K/uL (4.8-10.8) Red Blood Count 2.59 M/uL (4.2-5.4) Hemoglobin 7.8 g/dL (12.0-16.0) Hematocrit 24.2 % (37-47) Mean Corpuscular Volume 93.4 fL (80-100) Mean Corpuscular Hemoglobin 30.1 pg (25-34) Mean Corpuscular Hemoglobin Concent 32.2 g/dl (32-36) Platelet Count 281 K/uL (130-400) Mean Platelet Volume 9.5 fL (7.4-10.4) Neutrophils (%) (Auto) 77.8 % Lymphocytes (%) (Auto) 13.0 % Monocytes (%) (Auto) 5.6 % Eosinophils (%) (Auto) 3.2 % Basophils (%) (Auto) 0.1 % Neutrophils # (Auto) 8.00 K/uL (1.4-6.5) Lymphocytes # (Auto) 1.33 K/uL (1.2-3.4) Monocytes # (Auto) 0.57 K/uL (0.11-0.59) Eosinophils # (Auto) 0.33 K/uL (0-0.5) Basophils # (Auto) 0.01 K/uL (0-0.2) RDW Standard Deviation 46.9 fL (36.4-46.3) RDW Coefficient of Variation 15.1 % (11.5-14.5) Immature Granulocyte % (Auto) 0.3 % Immature Granulocyte # (Auto) 0.03 K/uL (0.00-0.02) Ovalocytes 1+ Prothrombin Time 10.0 SECONDS (9.0-12.0) Prothromb Time International Ratio 1.0 (0.9-1.1) Activated Partial Thromboplast Time 24.9 SECONDS (21.0-31.0) Partial Thromboplastin Ratio 1.0 Anion Gap 3.0 mmol/L (3-11) Est Creatinine Clear Calc Drug Dose 83.5 ml/min Estimated GFR () 105.5 Estimated GFR (Non- 91.0 BUN/Creatinine Ratio 20.0 (10-20) Calcium Level 8.7 mg/dl (8.5-10.1) Total Bilirubin 1.1 mg/dl (0.2-1) Direct Bilirubin 0.2 mg/dl (0-0.2) Aspartate Amino Transf (AST/SGOT) 39 U/L (15-37) Alanine Aminotransferase (ALT/SGPT) 38 U/L (12-78) Alkaline Phosphatase 94 U/L (45-117) Total Protein 7.3 gm/dl (6.4-8.2) Albumin 3.7 gm/dl (3.4-5.0) Lipase 266 U/L (73-393) Urine Color YELLOW Urine Appearance CLEAR (CLEAR) Urine pH 7.0 (4.5-7.5) Urine Specific [place] 1.007 (1.000-1.030) Urine Protein NEG (NEG) Urine Glucose (UA) NEG (NEG) Urine Ketones NEG (NEG) Urine Occult Blood TRACE (NEG) Urine Nitrite NEG (NEG) Urine Bilirubin NEG (NEG) Urine Urobilinogen NEG (NEG) Urine Leukocyte Esterase NEG (NEG) Urine WBC (Auto) 0 /hpf (0-5) Urine RBC (Auto) 0-4 /hpf (0-4) Urine Hyaline Casts (Auto) 0 /lpf (0-5) Urine Epithelial Cells (Auto) 5-10 /lpf (0-5) Urine Bacteria (Auto) NEG (NEG) Laboratory results per my review. Medications Administered Medications (Trade) Dose Ordered Sig/Alisha Route Start Time Stop Time Status Last Admin Dose Admin Sodium Chloride 1,000 ml @ 999 mls/hr Q1H1M STAT IV 10/12/17 14:21 10/12/17 15:21 DC 10/12/17 14:38 999 MLS/HR Procedure Slit Lamp Examination Anterior chambers deep/quiet. No cell/flare. ECG Per My Interpretation Indication: other (anemia) Rate (beats per minute): 83 Rhythm: sinus rhythm Findings: no ectopy, other (normal axis) ED Course ED COURSE: Vital signs were reviewed and showed tachycardia. The patients medical record was reviewed The above diagnostic studies were performed and reviewed. ED treatments and interventions as stated above. 1414: The patient was evaluated in room B12B. A complete history and physical examination was performed. 1421: Ordered NSS 1000 ml @ 999 mls/hr IV. 1532: I spoke to Dr. Frye- Thoracic Surgeon about the patient's case. 1615: I performed a rectal exam and the slit lamp exam at this time. The rectal exam is heme negative. 1709: Upon reevaluation, the patient is resting comfortably.I discussed my findings with the patient and she understands and agrees with the treatment plan. Based on the patients age, coexisting illnesses, exam and lab findings the decision to treat as an outpatient was made. The patient remained stable while under my care. The patient appeared well at the time of discharge. Medical Decision Differential Diagnosis includes but is not limited to dehydration, stroke, anemia, hypoglycemia, hyponatremia, hypernatremia, urinary tract infection, pneumonia, bronchitis, sepsis, gastroenteritis, additional abdominal pathology, metabolic abnormalities and infections. Patient is a 52-year-old female who presents the ER referred in by PCP for an anemia of 7.8. Patient was recently operated on by Dr. Frye and was found to be anemic at that time with a hemoglobin in the mid eights. CBC along with BMP, LFTs, bilirubin and lipase is unremarkable. UA was negative. INR was unremarkable. CT head and chest x-ray was unremarkable. Slit-lamp was benign. Patient did complain of seeing spots in bilateral eyes. Do not believe that this is a retinal artery occlusion or secondary to the anemia. She has no exertional chest pain or shortness of breath. She has no dark tarry stools. Gets her period very intermittently and they are generally very light. She is not coughing up blood or urinating blood. No blood thinners. Rectal was heme negative. Discussed with with Danie attempted to contact PCP but was unsuccessful. With her hemoglobin is 7.8 and asymptomatic we will not transfuse at this time. Discharge her for an outpatient workup with her PCP. She does have GI follow-up in 2 weeks for colonoscopy. Discussed with Pt concerning signs and symptoms to watch out for. Pt was instructed to follow up with their PCP and discussed with the patient their option to return to the ED at anytime for persistent or worsening symptoms. The appropriate anticipatory guidance and out-patient management, including indications for return to the emergency department, were explained at length to the patient and understood. Medication Reconcilliation Current Medication List: was personally reviewed by me Blood Pressure Screening Patient's blood pressure: Normal blood pressure Blood pressure disposition: Did not require urgent referral Consults Time Called: 1528 Consulting Physician: Dr. Frye- Thoracic Surgeon Returned Call: [address] Frye- Thoracic Surgeon about the patient's case. Impression Primary Impression: Anemia Scribe Attestation The scribe's documentation has been prepared under my direction and personally reviewed by me in its entirety. I confirm that the note above accurately reflects all work, treatment, procedures, and medical decision making performed by me. Departure Information Dispostion Home / Self-Care Referrals RV. Coburn MD (PCP) Forms HOME CARE DOCUMENTATION FORM, IMPORTANT VISIT INFORMATION, WORK / SCHOOL INSTRUCTIONS Patient Instructions My [facility] Additional Instructions Please follow up with your primary care doctor with in the next 24 hours. Any worsening of your symptoms, please return to the ED immediately. This includes any fevers greater than 100.4, worsening pain, chest pain, shortness breath, persistent nausea, vomiting, unable to eat or drink, or any other concerning signs or symptoms from your standpoint. Please start taking an [id number] iron pill/supplement. Please follow-up with your PCP in the next 5 days to have repeat blood work to check your hemoglobin. Please keep your appointment with GI for your scheduled colonoscopy. Please follow-up with thoracic surgery. Please follow-up with ophthalmology within the next 2-3 days. Problem Qualifiers Primary Impression: Anemia Anemia type: unspecified type Qualified Codes: D64.9 - Anemia, unspecified
== END 2017-10-12 17:46 | disposition home or self-care (01) ==
LOC: C.EDB 14:00
DX: D64.9 Anemia, unspecified (principal); H53.8 Other visual disturbances; R00.0 Tachycardia, unspecified; Z79.899 Other long term (current) drug therapy; Z87.891 Personal history of nicotine dependence

== ENCOUNTER → 2017-10-17 | Outpatient (CLI) | payer OTHER ==
[~2017-10-17] MED LIST changes: -CLC100 PO; +DOCU-94 PO; +FERR1TAB23 PO; -ULT/50 PO
[2017-10-17 15:59] LABS: BASO % 0.1 %; BASO ABS # 0.01 K/uL (0-0.2); EOS ABS # 0.35 K/uL (0-0.5); HEMATOCRIT 28.1 % (37-47); IG# 0.01 K/uL (0.00-0.02); LYMPH % 20.6 %; LYMPH ABS # 1.82 K/uL (1.2-3.4); MEAN CELL VOLUME 95.3 fL (80-100); MEAN CORPUSCULAR HEMOGLOBIN 30.5 pg (25-34); MONO ABS # 0.35 K/uL (0.11-0.59); NEUT % 71.2 %; PLATELET COUNT 338 K/uL (130-400); RED CELL DISTRIBUTION WIDTH CV 15.7 % (11.5-14.5); RED CELL DISTRIBUTION WIDTH SD 53.7 fL (36.4-46.3); WHITE BLOOD COUNT 8.84 K/uL (4.8-10.8)
== END | disposition home or self-care (01) ==
LOC: C.LAB1850 13:54
PROVIDERS: ATTEND Internal Medicine
DX: D64.9 Anemia, unspecified (principal)

== ENCOUNTER → 2017-10-19 | Outpatient (CLI) | payer OTHER ==
--- NOTE | 2017-10-19 15:08 | DIAGNOSTIC IMAGING REPORT ---
CHEST 2 VIEWS ROUTINE HISTORY: 52 years-old Female R91.1 Lung [id number] follow-up study in a patient with history of lung nodule COMPARISON: Chest radiograph 10/12/2017, PET CT 10/02/2017 TECHNIQUE: PA and lateral views of the chest FINDINGS: Cardiac silhouette is within normal limits. No pneumothorax. The left lung is clear. Small right pleural effusion with subsegmental right basilar opacities. The bones of the chest appear grossly intact. IMPRESSION: Small right pleural effusion with subsegmental right basilar opacities. The above report was generated using voice recognition software. It may contain grammatical, syntax or spelling errors. Electronically signed by: Phoenix Eason M.D. 10/19/2017 3:06 PM Dictated Date/Time: 10/19/2017 3:05 PM
== END | disposition home or self-care (01) ==
LOC: C.RAD1850 14:54
PROVIDERS: ATTEND Surgery
DX: R91.1 Solitary pulmonary nodule (principal); R91.8 Other nonspecific abnormal finding of lung field; J90 Pleural effusion, not elsewhere classified